=== PATIENT | female | born 1950 | race African-American/Black ===

== ENCOUNTER 2016-08-24 13:30 | Outpatient (RCR) | payer MEDICARE, OTHER ==
[~2016-08-24 13:30] MED LIST: ACYC-109 PO; AMIT10TA6 PO; AMOX500C2 PO; ASP81CT PO; BACL10TA PO; C250T PO; CALC-80 PO; CETI-176 PO; CINNAMON PO; CLCX200C PO; CYAN10007 PO; CYCL1DRO OU; ENAL5TAB PO; ESTR0.5T PO; ESTR1TAB66 PO; FLAX1CAP2 PO; GBPN100C PO; HYDR-89 PO; IRON45TA6 PO; KCL10CCR PO; MELA1TAB11 PO; METF-146 PO; MULT1TAB18 PO; NAPR220C11 PO; NISO8.5T PO; OMEG1CAP24 PO; P EP PO; PSEU240T5 PO; RNT150T PO; SENN-75 PO; SIMV40TA4 PO; SPIR1TAB2 PO; TRM50T PO; VITA-198 PO; VITAMIN B6 PO
== END 2016-08-27 | disposition home or self-care (01) ==
PROVIDERS: ATTEND Nurse Practitioner
DX: S86.092D Other specified injury of left Achilles tendon, subsequent encounter (principal)

== ENCOUNTER 2016-10-05 13:45 | Outpatient (RCR) | payer MEDICARE, OTHER ==
--- OUTSIDE RECORDS SUMMARY | 2016-08-31 15:09 | XMS REPORT | Continuity of Care Document ---
Author Author [facility] Organization [facility] Address Unknown Phone Unavailable Care Team Providers Care Layout Mechanic Name Role Phone JADYN OJEDA MD PCP Insurance Providers Payer Name Policy Number Subscriber Name Relationship [employer] [id number] Debbie Ontiveros Self / Same As Patient [employer] [employer] [id number] Debbie Ontiveros Self / Same As Patient Advance Directives Directive Response Recorded Date/Time Advance Directives Yes 01/02/12 12:03am Health Care Power of Pressure Sealer And Tester No 01/02/12 12:03am Organ Donor Yes 01/02/12 12:03am Problems No problem information available. Medications Current Home Medications Medication Dose Units Route Directions Days/Qty Instructions Start Date Acyclovir 400 Mg 1 Ea Oral Three Times A Day as needed 05/21/11 Amitriptyline Hcl (Elavil) 10 Mg 10 Mg Oral Bedtime 05/21/11 Amoxicillin 500 Mg 4 Each Oral Once as needed ONE HOUR BEFORE DENTAL APPT 05/21/11 Spironolact/Hydrochlorothiazid 1 Each 1 Each Oral Daily 05/21/11 Naproxen Sodium 220 Mg 2 Tab Oral Twice A Day 05/21/11 Aspirin 81 Mg 4 Tab Oral Daily 05/21/11 Calcium Carbonate/Vitamin D3 1 Each 1 Each Oral Twice A Day 05/21/11 Celecoxib 200 Mg 200 Mg Oral Daily 05/21/11 [Cinnamon] 1,000 Mg Oral Twice A Day 05/21/11 P-Ephed Sul/D-Bromp Mal 1 Tab.sr .12 H 1 Tab.sr Oral Daily 05/21/11 Enalapril Maleate 5 Mg 5 Mg Oral Twice A Day 05/21/11 Ranitidine Hcl 150 Mg 1 Tab Oral Twice A Day 05/21/11 Iron/Vitamin C 45 Mg 45 Mg Oral Daily 05/21/11 Flaxseed/Omega3,6,9/Fatty Acid 1 Each 1,000 Mg Oral Twice A Day 21/07 Me-Testosterone/Estrogen,Lynne 1 Tab 1 Tab Oral Daily 05/21/11 Metformin Hcl 1,000 Mg 1,000 Mg Oral Twice A Day 05/21/11 Acetaminophen/Hydrocodone Bitart 1 Tab 1 Each Oral Twice A Day 05/21 Potassium Chloride 10 Meq 10 Meq Oral Daily 05/21/11 Gabapentin 100 Mg 100 Mg Oral Daily 05/21/11 [place]-3 Fatty Acids/Fish Oil 1 Each 1,000 Mg Oral Twice A Day Cyclosporine 32 Ea 1 Drop Each Eye Twice A Day 05/21/11 Simvastatin 40 Mg 40 Mg Oral Daily 05/21/11 Sennosides/Docusate Sodium 1 Each 2 Each Oral Twice A Day 05/21/11 Multivits,Stress Formula/Zinc 1 Tab 1 Tab Oral Daily 05/21/11 Nisoldipine 8.5 Mg 20 Mg Oral Daily 05/21/11 Tramadol Hcl 50 Mg 50 Mg Oral Twice A Day 05/21/11 Cyanocobalamin 1,000 Mcg 1,000 Mcg Oral Daily 05/21/11 [Vitamin B6] 200 Mg Oral Daily 05/21/11 Ascorbic Acid 250 Mg 1,000 Mg Oral Daily 05/21/11 Vitamin E (Dl,Tocopheryl Acet) 1,000 Unit 1,000 Unit Oral Twice A Day 05/21/11 Baclofen (Lioresal) 10 Mg 1 Each Oral Three Times A Day as needed Pyridoxine/Melatonin 1 Tab 1 Tab Oral Daily 01/02/12 Estradiol 0.5 Mg 0.5 Mg Oral Twice A Day 01/02/12 Past Home Medications Medication Directions Ordered Status Cetirizine Hcl 10 Mg Tablet, 10 Mg Oral Daily 05/21/11 Discontinued Social History Social History Problem Response Recorded Date/Time Recent Foreign Travel No 05/29/2016 2:57pm Hx Sexually Transmitted Disorders No 01/02/2012 12:21am Hospital Discharge Instructions No hospital discharge instructions. Plan of Care Prescriptions See Medication Section Functional Status No functional status results. Allergies, Adverse Reactions, Alerts Allergen Type Severity Reaction Status Last Updated Erythromycin base Allergy Unknown Active 04/24/06 Immunizations No immunization records. Vital Signs No known vital signs results. Results No known relevant diagnostic tests, laboratory data and/or discharge summary. Procedures No known history of procedures. Encounters Encounter Location Arrival/Admit Date Discharge/Depart Date Attending Provider Discharged Recurring [facility] 08/24/16 1:30pm 11:59pm DAMARI LEI
== END 2016-10-17 16:25 | disposition home or self-care (01) ==
PROVIDERS: ATTEND Nurse Practitioner
DX: S86.092D Other specified injury of left Achilles tendon, subsequent encounter (principal)